=== PATIENT | female | born 1995 | race Hispanic/Latino ===

== ENCOUNTER → 2023-11-15 15:18 | Outpatient (CLI) | payer OTHER, SELFPAY ==
--- NOTE | 2023-11-15 | DI.US.S_ITS ---
PROCEDURE: US OB FOLLOW UP INDICATIONS: RE-EVALUATE CRANIAL ANATOMY OUTSIDE/PRIOR DATING DATA: Last menstrual period (LMP): 05/28/2023. LMP-based estimated date of delivery (LATA): 03/03/2024. First dating scan (date and location): Unknown Estimated date of delivery (LATA) from first dating scan: Unknown. TECHNIQUE: Real-time scanning was performed of the fetus, with image documentation and biometric measurements. COMPARISON: [facility] Ultrasound, US, US OB > 14 WEEKS COMPLETE ANATOMY, 10/20/2023, 15:15. FINDINGS: General: A single living intrauterine gestation is present. Presentation: Transverse. Placenta: Placental position is anterior , without previa. Amniotic fluid index: 18 cm, normal range is 5-24 cm. Single deepest vertical pocket is 5.4 cm. heart rate: 147 beats per minute. Maternal cervical canal: 5.1 cm long. Normal lower limit is 2.5 cm. biometrics: Clinically estimated gestational age: 24 weeks 3 days Other: Visualized intracranial structures are within normal limits. IMPRESSION: Single live intrauterine measuring 24 weeks 3 days. Cerebellum is unremarkable. We strive to produce accurate, complete, and clear reports of imaging services. To assist us in improving patient care, this report was composed using standard report templates and voice recognition software. Therefore, it may contain abnormal punctuation, insertions and/or omissions. Occasional wrong-word or sound-alike substitutions may occur. Though we review the report and make efforts to correct it, we do recommend that the report be read carefully in proper context to recognize any text inaccuracies. Dictated by: Sofya Waggoner M.D. on 11/15/2023 at 21:19 Approved by: Sofya Waggoner M.D. on 11/15/2023 at 21:21
== END ==
PROVIDERS: Referring Provider Family Medicine; Visit Provider Family Medicine
DX: Z36.2 Encounter for other antenatal screening follow-up (principal); Z3A.24 24 weeks gestation of pregnancy
CPT/HCPCS: 76816